=== PATIENT | female | born 1970 | race Caucasian/White ===

== ENCOUNTER → 2018-12-23 | Outpatient (CLI) | payer BC ==
--- NOTE | 2018-12-23 10:02 | US ---
EXAMINATION TYPE: US transvaginal DATE OF EXAM: 12/23/2018 COMPARISON: NONE CLINICAL HISTORY: 48-year-old female N92.1 [place]. Patient states having irregular bleeding. H x . TECHNIQUE: Transvaginal (TV). Date of LMP: 12/15/2018, FINDINGS: EXAM MEASUREMENTS: Uterus: 8.6 x 6.3 x 5.0 cm Endometrial Stripe: 0.7 cm Right Ovary: 3.2 x 3.0 x 2.6 cm 1. Uterus: Anteverted. Heterogenous myometrium. scar seen in anterior MARCOS. A couple massiel ges suggest a 4 mm cystic structure at the scar. 2. Endometrium: wnl 3. Right Ovary: Multiple cystic appearing lesions seen, largest = 2.6 x 1.6 x 2.0 cm 4. Left Ovary: Obscured by overlying bowel gas 5. Bilateral Adnexa: wnl 6. Posterior cul-de-sac: no free fluid 7. Cervix- fluid seen within cervical canal. Nabothian cysts. IMPRESSION: 1. Heterogeneous myometrium may be seen with diffuse small fibroid change or adenomyosis. Clinically correlate. 2. scar. A couple images suggest a 4 mm cystic structure at the scar which may represent a scar niche. 3. Prominent follicular change in the right ovary with a dominant follicle/functional cyst measuring 2.6 cm.
== END | disposition home or self-care (01) ==
LOC: RADUSWWP 08:05
PROVIDERS: ATTEND Obstetrics & Gynecology
DX: N92.1 Excessive and frequent menstruation with irregular cycle (principal)
CPT/HCPCS: 76830; 82670; 83001; 83002; 84702

== ENCOUNTER → 2019-03-10 | Outpatient (CLI) | payer BC ==
--- NOTE | 2019-03-13 13:23 | MM ---
Reason for exam: screening (asymptomatic). Last mammogram was performed 5 years and 9 months ago. History: Family history of breast cancer in aunt. Physical Findings: A clinical breast exam by your physician is recommended on an annual basis and results should be correlated with mammographic findings. MG Screening Mammo w CAD Bilateral CC and MLO view(s) were taken. Prior study comparison: June 14, 2013, bilateral digital screening mammo w/CAD. April 29, 2007, bilateral screening mammogram w/CAD. There are scattered fibroglandular densities. Lateral asymmetric density right CC view is more defined. ASSESSMENT: Incomplete: need additional imaging evaluation, BI-RAD 0 RECOMMENDATION: Special view mammogram of the right breast. (3D) If lesion persists on supplemental views, image directed ultrasound is recommended. [facility] will attempt to contact patient to return for supplemental views and ultrasound if indicated.
== END | disposition home or self-care (01) ==
LOC: RADMAMWWP 15:03
PROVIDERS: ATTEND Obstetrics & Gynecology
DX: Z12.31 Encounter for screening mammogram for malignant neoplasm of breast (principal); Z80.3 Family history of malignant neoplasm of breast
CPT/HCPCS: 77067

== ENCOUNTER → 2019-03-22 | Outpatient (CLI) | payer BC ==
--- NOTE | 2019-03-23 08:35 | MM ---
Reason for exam: additional evaluation requested from abnormal screening. Last mammogram was performed less than 1 month ago. History: Family history of breast cancer in aunt. Physical Findings: Nurse did not find any significant physical abnormalities on exam. MG Work Up Mamm w CAD RT Spot compression CC, spot compression MLO, and LM view(s) were taken of the right breast. Prior study comparison: March 10, 2019, bilateral MG screening mammo w CAD. June 14, 2013, bilateral digital screening mammo w/CAD. There are scattered fibroglandular densities. There is no discrete abnormality. These results were verbally communicated with the patient and result sheet given to the patient on 03/22/19. ASSESSMENT: Negative, BI-RAD 1 RECOMMENDATION: Return to routine screening mammogram schedule for both breasts.
== END | disposition home or self-care (01) ==
LOC: RADMAMWWP 13:35
PROVIDERS: ATTEND Obstetrics & Gynecology
DX: R92.8 Other abnormal and inconclusive findings on diagnostic imaging of breast (principal)
CPT/HCPCS: 77065

== ENCOUNTER → 2022-06-22 | Outpatient (CLI) | payer BC ==
--- NOTE | 2022-06-23 08:23 | MM ---
Reason for Exam: Screening (asymptomatic). Last mammogram was performed 3 year(s) and 3 month(s) ago. Patient History: Menarche at age 14. First Full-Term at age 29. Postmenopausal. Maternal aunt had breast cancer. Risk Values: Cindy 5 year model risk: 1.1%. NCI Lifetime model risk: 9.7%. Prior Study Comparison: 06/14/2013 Bilateral Screening Mammogram, [facility]. 03/10/2019 Bilateral Screening Mammogram, [facility]. 03/22/2019 Right Diagnostic Mammogram, [facility]. Tissue Density: There are scattered fibroglandular densities. Findings: Analyzed By CAD. There is no suspicious group of microcalcifications or new suspicious mass in either breast. Overall Assessment: Negative, BI-RAD 1 Management: Screening Mammogram of both breasts in 1 year. A clinical breast exam by your physician is recommended on an annual basis and results should be correlated with mammographic findings. Electronically signed and approved by: Matt Seals D.O.
== END | disposition home or self-care (01) ==
LOC: RADMAMWWP 16:22
PROVIDERS: ATTEND Family Medicine
DX: Z12.31 Encounter for screening mammogram for malignant neoplasm of breast (principal); Z80.3 Family history of malignant neoplasm of breast; Z78.0 Asymptomatic menopausal state
CPT/HCPCS: 77063; 77067

== ENCOUNTER → 2023-12-07 | Outpatient (CLI) | payer BC ==
--- NOTE | 2023-12-08 13:06 | MM ---
Reason for Exam: Screening (asymptomatic). Last mammogram was performed 1 year(s) and 6 month(s) ago. Patient History: Menarche at age 14. First Full-Term at age 29. Postmenopausal. Maternal aunt had breast cancer, age 54. Risk Values: Cindy 5 year model risk: 1.2%. NCI Lifetime model risk: 9.6%. Prior Study Comparison: 03/10/2019 Bilateral Screening Mammogram, [facility]. 03/22/2019 Right Diagnostic Mammogram, [facility]. 06/22/2022 Bilateral MG 3D screening mammo w/cad, [facility]. Tissue Density: The breasts are almost entirely fatty. Findings: Analyzed By CAD. There is no suspicious group of microcalcifications or new suspicious mass in either breast. Overall Assessment: Negative, BI-RAD 1 Management: Screening Mammogram of both breasts in 1 year. . Patient should continue monthly self-breast exams. A clinical breast exam by your physician is recommended on an annual basis. This exam should not preclude additional follow-up of suspicious palpable abnormalities. Note on Cindy scores and lifetime risk: 1. A Cindy score greater than 3% is considered moderate risk. If this is the case, consider specialist referral to assess eligibility for a risk reducing agent. 2. If overall lifetime risk for the development of breast cancer is 20% or higher, the patient may qualify for future screening with alternating mammogram and breast MRI. Electronically signed and approved by: Erlin Puentes M.D. Radiologis
== END | disposition home or self-care (01) ==
LOC: RADMAMWWP 07:24
PROVIDERS: ATTEND Family Medicine
DX: Z12.31 Encounter for screening mammogram for malignant neoplasm of breast (principal); Z80.3 Family history of malignant neoplasm of breast; Z78.0 Asymptomatic menopausal state
CPT/HCPCS: 77067

== ENCOUNTER → 2025-01-16 | Outpatient (CLI) | payer BC ==
--- NOTE | 2025-01-17 08:24 | MM ---
Reason for Exam: Screening (asymptomatic). Last mammogram was performed 1 year(s) and 1 month(s) ago. Patient History: Menarche at age 14. First Full-Term at age 29. Postmenopausal. Maternal aunt had breast cancer, age 54. Risk Values: Cindy 5 year model risk: 1.2%. NCI Lifetime model risk: 9.4%. Prior Study Comparison: 03/22/2019 Right Diagnostic Mammogram, [facility]. 06/22/2022 Bilateral MG 3D screening mammo w/cad, [facility]. 12/07/2023 Bilateral MG screening mammo w CAD, [facility]. Tissue Density: The breasts are almost entirely fatty. Findings: Analyzed By CAD. Right breast: There is no suspicious group of microcalcifications or new suspicious mass. Left breast: There is no suspicious group of microcalcifications or new suspicious mass. Overall Assessment: Negative, BI-RAD 1 Management: Screening Mammogram of both breasts in [address] [facility] will attempt to contact patient to return for supplemental views and ultrasound if indicated. Patient should continue monthly self-breast exams. A clinical breast exam by your physician is recommended on an annual basis. This exam should not preclude additional follow-up of suspicious palpable abnormalities. Note on Cindy scores and lifetime risk: 1. A Cindy score greater than 3% is considered moderate risk. If this is the case, consider specialist referral to assess eligibility for a risk reducing agent. 2. If overall lifetime risk for the development of breast cancer is 20% or higher, the patient may qualify for future screening with alternating mammogram and breast MRI. [facility], , 01/17/2025 8:22 AM. Electronically signed and approved by: Lloyd Hernandez DO
== END | disposition home or self-care (01) ==
LOC: RADMAMWWP 16:39
PROVIDERS: ATTEND Family Medicine
DX: Z12.31 Encounter for screening mammogram for malignant neoplasm of breast (principal); R92.313 Mammographic fatty tissue density, bilateral breasts; Z78.0 Asymptomatic menopausal state; Z80.3 Family history of malignant neoplasm of breast
CPT/HCPCS: 77063; 77067